=== PATIENT | male | born 1975 | race Caucasian/White ===

== ENCOUNTER 2024-07-20 09:29 | Emergency (ER) | payer SELFPAY ==
[2024-07-20] MEDS ORDERED: LIDOCAINE 2% W/EPI 1:200,000 MPF 20 ML VIAL IM ONE (10:55)
--- NOTE | 2024-07-20 11:17 | EDPHYS ---
Physician Documentation [facility] Name: Ibrahima Murillo Age: 48 yrs Sex: Male : 1975 Arrival Date: 07/20/2024 Time: 09:29 Bed 11 Private MD: ED Physician Ej Burnham HPI: 07/20 10:02 This 48 yrs old Male presents to ER via Ambulatory with complaints of wound ec2 on right calf. 10:02 Patient arrives today for evaluation of a bleeding wound to the right lateral calf. ec2 States that he scratched a scab and subsequently has a bleeder there. Patient reports up-to-date on his tetanus shot. No other concerns.. Historical: - Allergies: 09:59 No Known Allergies; iw - Immunization history:: Adult Immunizations unknown. - Infectious Disease History:: Denies. - Social history:: Smoking status: unknown. ROS: 10:02 Constitutional: as per hpi ec2 Exam: 10:02 Constitutional: GEN: NAD Head: atraumatic Eyes: EOMI Ears: External ears are ec2 normal. CV: regular rate LUNGS: no respiratory distress ABD: non-distended SKIN: Small half a centimeter injury to the right lateral calf with some slow venous ooze noted MSK: no evidence of trauma Vital Signs: 09:58 Resp 16; Temp 98.1; iw 10:00 BP 144 / 107; Pulse 90; Resp 16; Pulse Ox 95% on R/A; iw Laceration: 11:17 Wound Repair of .5cm ( 0.2in ) subcutaneous laceration to right leg and left leg. ec2 Distal neuro/vascular/tendon intact. Anesthesia: Wound infiltrated with 5 mls of 1% lidocaine w/ Epi. Wound prep: Moderate cleansing. Skin closed with 1 4-0 chromic gut using figure of 8. Dressed with non-adherent dressing. Patient tolerated well. MDM: 09:58 Medical Screening Exam initiated ec2 10:02 Data reviewed: vital signs. ED course: Patient arrives today for evaluation of bleeding ec2 to the right calf. Examination remarkable for skin findings as above. Will inject lidocaine with epinephrine and performed skin repair.. 07/20 10:02 Order name: Wound dressing; Complete Time: 13:37 ec2 07/20 11:18 Order name: Misc. Order: non-adherent dressing, gauze, wrap; Complete Time: 13:37 ec2 Administered Medications: 11:30 Drug: Lidocaine-Epinephrine Infiltration -2 % (1:100,000) 10 ml Infiltration once; to iw bedside Route: Infiltration; Disposition Summary: 07/20/24 11:16 Discharge Ordered Condition: Stable ec2 Diagnosis - Open Wound of the Right Calf ec2 Followup: ec2 - With: Private Physician - When: - Reason: Re-evaluation by your physician Discharge Instructions: - Discharge Summary Sheet ec2 - Laceration Care, Adult, [id number] ec2 Forms: - Medication Reconciliation Form ec2 - Antibiotic Education ec2 - Prescription Opioid Use ec2 - Patient Portal Instructions ec2 - Leadership Thank You Letter ec2 Signatures: Dannielle Martinez, ORALIA RN Ej Burnham MD MD ec2
--- NOTE | 2024-07-20 11:17 | ER ---
Nurse's Notes [facility] Name: Ibrahima Murillo Age: 48 yrs Sex: Male : 1975 Arrival Date: 07/20/2024 Time: 09:29 Bed 11 Private MD: Diagnosis: Open Wound of the Right Calf Presentation: 07/20 09:58 Chief complaint: Patient states: had a scratch on right calf area, last night he iw scratched it with his nails last night and it started squirting across the room, still bleeding today , not on blood thinners. Coronavirus screen: At this time, the client does not indicate any symptoms associated with coronavirus-19. Ebola Screen: No symptoms or risks identified at this time. Initial Sepsis Screen: Does the patient meet any 2 criteria? No. Patient's initial sepsis screen is negative. Does the patient have a suspected source of infection? No. Patient's initial sepsis screen is negative. Risk Assessment: Do you want to hurt yourself or someone else? Patient reports no desire to harm self or others. Onset of symptoms was July 19, 2024. 09:58 Method Of Arrival: Ambulatory iw 09:58 Acuity: KALYN 4 iw Triage Assessment: 10:00 General: Appears in no apparent distress. Behavior is calm, cooperative. iw Historical: - Allergies: 09:59 No Known Allergies; iw - Immunization history:: Adult Immunizations unknown. - Infectious Disease History:: Denies. - Social history:: Smoking status: unknown. Screenin/14 11:53 [facility] ED Fall Risk Assessment (Adult) History of falling in the last 3 months, iw including since admission No falls in past 3 months (0 pts) Confusion or Disorientation No (0 pts) Intoxicated or Sedated No (0 pts) Impaired Gait No (0 pts) Mobility Assist Device Used No (0 pt) Altered Elimination No (0 pt) Score/Fall Risk Level 0 - 2 = Low Risk Oriented to surroundings, Maintained a safe environment. Abuse screen: Denies threats or abuse. Denies injuries from another. Nutritional screening: No deficits noted. Tuberculosis screening: No symptoms or risk factors identified. Assessment: 07/20 10:00 General: Appears in no apparent distress. Behavior is calm, cooperative. Pain: Denies iw pain. Neuro: Level of Consciousness is awake, alert, obeys commands, Oriented to person, place, time, situation, Moves all extremities. Full function. Cardiovascular: Patient's skin is warm and dry. Respiratory: Respiratory effort is even, unlabored, Respiratory pattern is regular. Derm: Skin is healthy with good turgor. Musculoskeletal: Range of motion: intact in all extremities. Injury Description: Abrasion sustained to lateral aspect of right calf. Vital Signs: 09:58 Resp 16; Temp 98.1; iw 10:00 BP 144 / 107; Pulse 90; Resp 16; Pulse Ox 95% on R/A; iw ED Course: 09:33 Patient arrived in ED. im 09:39 Ej Burnham MD is Attending Physician. ec2 09:59 Triage completed. iw 10:00 Patient has correct armband on for positive identification. Provided Education on: . iw 10:30 Arm band placed on. iw 11:14 Dannielle Martinez RN is Primary Nurse. iw 11:30 Assist provider with laceration repair on lateral aspect of right calf that was 2.5 cm. iw or less using sutures. Set up tray. Performed by Ej Burnham MD Dressed with 4X4s, Kerlix, Patient tolerated well. 11:53 Patient did not have IV access during this emergency room visit. iw Administered Medications: 11:30 Drug: Lidocaine-Epinephrine Infiltration -2 % (1:100,000) 10 ml Infiltration once; to iw bedside Route: Infiltration; Medication: 11:00 VIS not applicable for this client. iw Outcome: 11:16 Discharge ordered by . ec2 11:54 Discharged to home ambulatory, iw 11:54 Condition: good 11:54 Discharge instructions given to patient, Instructed on discharge instructions, follow up and referral plans. Demonstrated understanding of instructions, follow-up care, 11:55 Patient left the ED. rs5 Signatures: Dannielle Martinez, ORALIA BARTON iw Rui Miller RN RN rs5 Marleny Jimenez Ej Burnham MD MD ec2
[2024-07-20 13:24] VITALS: TEMP 98.1
[2024-07-20 13:26] VITALS: BP 144/107; O2SAT 95
== END 2024-07-20 11:55 | disposition home or self-care (01) ==
LOC: ER 09:29
DX: S81.801A Unspecified open wound, right lower leg, initial encounter (principal)
CPT/HCPCS: 12001; 99283